=== PATIENT | male | born 1935 | race Caucasian/White ===

== ENCOUNTER 2023-03-22 17:58 | Outpatient (CLI) | payer MEDICARE, SELFPAY | END 2023-03-22 17:59 | disposition home or self-care (01) | LOC: AMB 03-23 05:57 | PROVIDERS: Visit Provider Family Medicine | DX: R56.9 Unspecified convulsions (principal); R41.82 Altered mental status, unspecified | CPT/HCPCS: A0425; A0429 ==

== ENCOUNTER 2023-03-22 18:27 | Emergency (ER) | payer MEDICARE, SELFPAY ==
[2023-03-22] VITALS (24 sets, daily range): BP systolic 120–142; BP diastolic 56–76; PULSE 61–82; RESP 18; TEMP 36.4; O2SAT 88–97; BMI 27.8
--- NOTE | 2023-03-22 18:46 | ED_ITS ---
HPI - General Adult General Chief complaint: Syncope/Fainted Stated complaint: Near Syncope Time Seen by Provider: 03/22/23 18:44 History of Present Illness HPI narrative: Patient was at a family [employer]. Family report that patient seemed to have a blank stare and not respond to questions. Police then arrived on scene, and they corroborate that patient did stare off and required someone to steady him in chair though he seemed rigid. This occurred twice and lasted about 30 sec onds each time in 3 minute period. Family did administer Nitro as patient has a cardiac history . EMS reports that patient was back to baseline and had non complaints when they arrived. Patient reports being aware at all times but felt sweaty, dizzy and faint and really awful. 88-year-old man presenting to the emergency department with concern of what sounds to have been a near syncope. He describes being in his garage and started to feel ?dizzy? but with further questioning it sounds like this is actually more lightheaded, then get really sweaty. He thinks this lasted about 5 minutes. See description as above. No chest pain. Not actually sort of breath. Notes a history of heart ?blockages?. He does not have any stenting or any vascular intervention with regard to his heart. He says he was started on cholesterol medicine. Does not have a seizure history. He says he is feeling quite well now. Prior to this event was feeling usual state of health. Had a couple beers this afternoon. I note extremity edema on exam. He says he does have a history of lower leg swelling. Has been prescribed compression stockings but he has trouble getting them on. Related Data Home Medications Medication Instructions Recorded Confirmed aspirin 81 mg tablet,delayed 81 mg PO DAILY 03/01/23 03/01/23 release atorvastatin 40 mg tablet 40 mg PO DAILY 03/01/23 03/01/23 blood sugar diagnostic (Contour #10 ea 03/01/23 03/01/23 Next Test Strips) ciclopirox 8 % topical solution topical 03/01/23 03/01/23 finasteride 5 mg tablet 5 mg PO DAILY 03/01/23 03/01/23 fluorouracil 5 % topical cream 1 applic topical BID 03/01/23 03/01/23 losartan 100 mg tablet 100 mg PO DAILY 03/01/23 03/01/23 metoprolol tartrate 25 mg tablet 25 mg PO DAILY 03/01/23 03/01/23 nitroglycerin 0.4 mg sublingual mg sublingual 03/01/23 03/01/23 tablet spironolactone 25 1 tab PO DAILY 03/01/23 03/01/23 mg-hydrochlorothiazide 25 mg tablet tamsulosin 0.4 mg capsule 0.4 mg PO DAILY 03/01/23 03/01/23 Allergies Allergy/AdvReac Type Severity Reaction Status Date / Time No Known Drug Allergies Allergy Verified 03/01/23 11:06 Review of Systems Status of ROS: Reports: 6 or more systems reviewed and unremarkable except as noted in History and below [facility] Social History Smoking Status: Never smoker How often do you have a drink containing alcohol: monthly or less How many standard drinks containing alcohol do you have on a typical day: 1 or 2 AUDIT-C Alcohol total score: 1 Non-prescribed substance use: denies use Exam Narrative: Exam Narrative: Pleasant. NAD. Fully alert and easily conversant. GCS 15 Breathing easily. Cranial nerves 2-12 intact. There is no nystagmus. Moves to seated position without symptoms. Lower extremities are well perfused but with 1+ pitting edema from mid calf and distal bilaterally. No changes consistent with cellulitis. Lungs are clear. Heart with regular rate and rhythm. On monitor though it appears to be that he assured throwing some PVCs. These seem to be asymptomatic. No JVD. Abdomen is protuberant soft and nontender. Full strength throughout. Const: Vital Signs, click to edit/add: Vital Signs - 24 hr 03/22/23 18:37 03/22/23 19:10 03/22/23 19:15 Temperature 97.5 F L Pulse Rate 64 67 Pulse Rate [Pulse Oximeter] 82 Respiratory Rate 18 Blood Pressure Blood Pressure [Ri ght Upper Arm] 120/56 L Pulse Oximetry 91 95 96 Oxygen Delivery Me thod Room Air 03/22/23 19:30 03/22/23 19:32 03/22/23 19:33 Temperature Pulse Rate 70 72 67 Pulse Rate [Pulse Oximeter] Respiratory Rate Blood Pressure 130/57 L Blood Pressure [Ri ght Upper Arm] Pulse Oximetry 93 95 93 Oxygen Delivery Me thod 03/22/23 19:45 03/22/23 20:00 03/22/23 20:02 Temperature Pulse Rate 71 80 79 Pulse Rate [Pulse Oximeter] Respiratory Rate Blood Pressure 135/66 Blood Pressure [Ri ght Upper Arm] Pulse Oximetry 96 88 95 Oxygen Delivery Me thod 03/22/23 20:15 03/22/23 20:30 03/22/23 20:35 Temperature Pulse Rate 74 69 75 Pulse Rate [Pulse Oximeter] Respiratory Rate Blood Pressure Blood Pressure [Ri ght Upper Arm] Pulse Oximetry 96 97 96 Oxygen Delivery Me thod 03/22/23 20:45 03/22/23 21:00 03/22/23 21:05 Temperature Pulse Rate 73 70 71 Pulse Rate [Pulse Oximeter] Respiratory Rate Blood Pressure Blood Pressure [Ri ght Upper Arm] Pulse Oximetry 96 96 95 [facility] has reviewed patient's vital signs: yes Course Vital Signs Vital signs: Initial Vital Signs Temperature 97.5 F L 03/22/23 18:37 Temperature Source Temporal Artery Scan 03/22/23 18:37 Pulse Rate 82 03/22/23 18:37 Respiratory Rate 18 03/22/23 18:37 Blood Pressure 120/56 L 03/22/23 18:37 Blood Pressure Mean 77 03/22/23 18:37 Pulse Oximetry 91 03/22/23 18:37 Oxygen Delivery Method Room Air 03/22/23 18:37 Vital Signs Temperature 97.5 F L 03/22/23 18:37 Pulse Rate 82 03/22/23 18:37 Respiratory Rate 18 03/22/23 18:37 Blood Pressure 120/56 L 03/22/23 18:37 Pulse Oximetry 91 03/22/23 18:37 Oxygen Delivery Method Room Air 03/22/23 18:37 Temperature 97.5 F L 03/22/23 18:37 Pulse Rate 61 03/22/23 22:15 Respiratory Rate 18 03/22/23 18:37 Blood Pressure 138/76 03/22/23 22:03 Pulse Oximetry 97 03/22/23 22:15 Oxygen Delivery Method Room Air 03/22/23 18:37 Medical Decision Making MDM Narrative Medical decision making narrative: I am anticipating monitoring on phototypesetting equipment monitor for couple of hours. Check labs. Hydrate. Was outside today though it has not been terribly hot. Had a couple of beers. Potentially multifactorial. Will look for evidence though of dysrhythmia or pulmonary embolus or ischemic cardiac event. Receive L of normal saline. Chest x-ray reviewed by me looks unremarkable. Labs overall reassuring with mild hyponatremia though which sounds to be not necessarily new and a creatinine of 1.6. During time in the emergency department did continue to have PVCs. Ultimately also a few runs of brief with of to be V-tach in the 120s. These were all asymptomatic. Otherwise remained well. I did review all these findings with Cardiology at [place]. Apparently this is similar to what has occurred prior. Recent evaluations have included in January an echocardiogram showing normal biventricular function and some mild RV enlargement. Had a 2 day Holter monitor in January of last year showing a couple 2 second pauses and 4% PVCs and a couple episodes of V-tach up to 31 beats Recommendations are to monitor again. And given still with somewhat long first- degree AV block is noted here on EKG not increase beta-rosalinda at this time. See patient discharge plan. Lab Data Lab results reviewed: Yes I reviewed the patient's lab results Labs: Lab Results 03/22/23 03/22/23 03/22/23 Range/Units 19:00 19:05 20:30 WBC 7.31 (4.50-11.00) K/uL RBC 3.96 L (4.30-5.90) m/uL Hgb 12.8 L (13.5-17.5) gm/dL Hct 37.2 (37.0-53.0) % MCV 94 (80-100) fL MCH 32 (26-34) pg MCHC 34 (32-36) gm/dL RDW Coeff of Leela 13.0 (11.5-15.5) % Plt Count 143 (140-440) K/uL Neut % (Auto) 77.7 H (42.0-72.0) % Lymph % (Auto) 9.7 L (20-44) % [place] % (Auto) 10.7 (0.0-11.0) % Eos % (Auto) 1.0 (0.0-7.0) % Baso % (Auto) 0.4 (0.0-3.0) % Neut # (Auto) 5.70 (1.7-7.0) K/uL Lymph # (Auto) 0.70 L (0.90-2.90) K/uL [place] # (Auto) 0.80 (0.00-0.90) K/UL Eos # (Auto) 0.07 (0.00-0.50) K/uL Baso # (Auto) 0.03 (0.00-0.30) K/uL D-Dimer Quant (PE/DVT) 0.46 (0.00-0.50) ug/ml Sodium 132 L (135-149) mmol/L Potassium 3.7 (3.6-5.1) mmol/L Chloride 99 (96-114) mmol/L Carbon Dioxide 23 (20-32) mmol/L BUN 38 H (7-30) mg/dL Creatinine 1.6 H (0.5-1.5) mg/dL Estimated Creat Clear 28.29 Estimated GFR 41 ml/min Glucose 244 H (60-115) mg/dL Calcium 8.2 L (8.4-10.6) mg/dL Total Bilirubin 0.6 (0.1-1.5) mg/dL Direct Bilirubin 0.0 (0.0-0.5) mg/dL AST 44 H (12-35) U/L ALT 45 (4-50) U/L Alkaline Phosphatase 57 (40-150) U/L Troponin I < 0.01 L (0.01-0.04) ng/mL C-Reactive Protein < 0.5 L (0.5-1.0) mg/dL NT-Pro-B Natriuret Pep 585 pg/mL Total Protein 6.2 (6.0-8.3) g/dL Albumin 3.7 (3.3-5.0) g/dL Ethyl Alcohol < 0.01 L (0.01-0.03) % POC Troponin I 0.00 L 0.00 L (0.01-0.04) ng/ml ECG Data Attestation: I personally reviewed and interpreted this ECG as follows: (Sinus rhythm with first-degree AV block rate of 66) Discharge Plan Discharge Clinical Impression: 1st degree AV block, Near syncope, V tach Patient Disposition: Home w/ Parent or Adult Condition: Stable Additional Instructions: Stay well-hydrated. For now might want to avoid more than 1 beer or cup of coffee at a time. Return monitor as recommended. After this this, follow-up in about a week with your primary care provider for review. Return for worsening lightheadedness, associated chest pain or shortness of breath, any full syncopal event. Prescriptions: No Action nitroglycerin 0.4 mg tablet, sublingual sublingual losartan 100 mg tablet 100 mg PO DAILY metoprolol tartrate 25 mg tablet 25 mg PO DAILY atorvastatin 40 mg tablet 40 mg PO DAILY spironolacton-hydrochlorothiaz 25-25 mg tablet 1 tab PO DAILY tamsulosin 0.4 mg capsule 0.4 mg PO DAILY ciclopirox 8 % solution topical finasteride 5 mg tablet 5 mg PO DAILY fluorouracil 5 % cream 1 applic topical BID (DME) Contour Next Test Strips Strip See Rx Instructions .ROUTE DAILY Qty: 10 Rx Instructions: As directed aspirin 81 mg tablet,delayed release (DR/EC) 81 mg PO DAILY Follow Up/Referrals: Provider,Not a Local [Primary Care Provider] - Stand Alone Forms: [employer] Info Instructions
--- NOTE | 2023-03-22 18:59 | CRLHL7_ITS ---
For Patients: As a result of the Century Cures Act, medical imaging exams and procedure reports are released immediately into your electronic medical record. You may view this report before your referring provider. If you have questions, please contact your health care provider. INDICATION: Presyncope TECHNIQUE: Chest 1 view. COMPARISON: Chest x-ray 11/06/2017 and 10/07/2017 FINDINGS: The heart is normal in size. The pulmonary vasculature is within normal limits. The lungs are clear. There is atherosclerotic calcification of the aortic arch. Bones are unremarkable. IMPRESSION: No acute process. Dictated by Geovanna Bansal MD @ 03/22/2023 8:04:46 PM Dictated by: Geovanna Bansal MD @ 03/22/2023 20:04:58 (Electronically Signed)
[2023-03-22 19:14] LABS: Hematocrit 37.2 % (37.0-53.0); Hemoglobin* 12.8 gm/dL (13.5-17.5); Mean Corpuscular HGB Conc 34 gm/dL (32-36); Mean Corpuscular Hemoglobin 32 pg (26-34); Mean Corpuscular Volume 94 fL (80-100); Neutrophils Percent Auto 77.7 % (42.0-72.0); Platelet Count* 143 K/uL (140-440); Red Blood Count 3.96 m/uL (4.30-5.90); White Blood Count* 7.31 K/uL (4.50-11.00)
[2023-03-22 19:15] LABS: Basophils Absolute Auto 0.03 K/uL (0.00-0.30); Basophils Percent Auto 0.4 % (0.0-3.0); Eosinophils Absolute Auto 0.07 K/uL (0.00-0.50); Immature Granulocytes Abs Auto 0.04 K/uL (0.00-0.30); Immature Granulocytes Pct Auto 0.5 %; Lymphocytes Percent Auto 9.7 % (20-44); Monocytes Percent Auto 10.7 % (0.0-11.0)
[2023-03-22] MEDS: 0.9 % SODIUM CHLORIDE 1000 ml 1,000 ML IV (19:19)
[2023-03-22 19:23] LABS: Slide Review Reflex No
[2023-03-22 19:26] LABS: Chloride* 99 mmol/L (96-114)
[2023-03-22 19:27] LABS: Albumin* 3.7 g/dL (3.3-5.0); Potassium* 3.7 mmol/L (3.6-5.1); Sodium* 132 mmol/L (135-149)
[2023-03-22 19:29] LABS: Creatinine* 1.6 mg/dL (0.5-1.5); Est. Creatinine Clearance* 28.29; Estimated Glomerular Filt Rate 41 ml/min
[2023-03-22 19:30] LABS: Alanine Aminotransferase* 45 U/L (4-50); Alkaline Phosphatase* 57 U/L (40-150); Aspartate Amino Transferase* 44 U/L (12-35); Bilirubin Total* 0.6 mg/dL (0.1-1.5); Blood Urea Nitrogen* 38 mg/dL (7-30); Calcium* 8.2 mg/dL (8.4-10.6); Carbon Dioxide* 23 mmol/L (20-32); Glucose* 244 mg/dL (60-115); Total Protein* 6.2 g/dL (6.0-8.3)
[2023-03-22 19:31] LABS: D Dimer Quantitative* 0.46 ug/ml (0.00-0.50)
[2023-03-22 19:37] LABS: C Reactive Protein* < 0.5 mg/dL (0.5-1.0); Ethanol* < 0.01 % (0.01-0.03)
[2023-03-22 19:43] LABS: NT Pro B Type NatriureticPept* 585 pg/mL; Troponin I* < 0.01 ng/mL (0.01-0.04)
== END 2023-03-22 22:33 | disposition home or self-care (01) ==
PROVIDERS: Emergency Provider Family Medicine
DX: I44.0 Atrioventricular block, first degree (principal); I47.20 Ventricular tachycardia, unspecified; R55 Syncope and collapse; R60.9 Edema, unspecified
CPT/HCPCS: 36415; 71045; 80048; 80076; 82077; 83880; 84484; 85025; 85379; 86140; 93005; 93225; 93226; 96360; 99284; 99285; J7030